=== PATIENT | male | born 1990 | race Hispanic/Latino ===

== ENCOUNTER 2017-03-12 01:17 | Emergency (ER) | payer BC ==
[2017-03-12 01:34] VITALS: RESP 16
--- NOTE | 2017-03-12 02:33 | ED PDOC ---
HPI: Seizure Time Seen by Provider: 03/12/17 01:20 Chief Complaint (Nursing): Seizure Chief Complaint (Provider): seizure History Per: Patient History/Exam Limitations: no limitations Recent Seizure Activity Began: Just Before Arrival Number Of Seizures: One Length Of Seizures (Duration): Minutes (2) Quality Of Seizure: Generalized Additional Complaint(s): 26yo male with PMHx including seizure a few years ago but never sought medical attention, shoulder dislocation, and Type 1 diabetes presents to the ED s/p seizure this evening. Patient reportedly had generalized tonic clonic seizure witnessed by female shaker operator. Patient was stiff for 2 minutes and hit the back of his head. Patient complaining of right shoulder pain. No other medical complaints. Past Medical History Reviewed: Historical Data, Nursing Documentation, Vital Signs Vital Signs: Last Vital Signs Temp 97.8 F 03/12/17 06:16 Pulse 86 03/12/17 06:16 Resp 16 03/12/17 06:16 BP 102/66 03/12/17 06:16 Pulse Ox 96 03/12/17 07:01 - Medical History PMH: Diabetes (type 1 ), Seizures (x1 ) Other PMH: shoulder dislocation - Surgical History Surgical History: No Surg Hx - Family History Family History: States: No Known Family Hx - Social History Current smoker - smoking cessation education provided: No Alcohol: None Drugs: Denies - Allergies Allergies/Adverse Reactions: Allergies Allergy/AdvReac Type Severity Reaction Status Date / Time No Known Allergies Allergy Verified 03/12/17 01:34 Review of Systems ROS Statement: Except As Marked, All Systems Reviewed And Found Negative Musculoskeletal: Positive for: Shoulder Pain (right ) Neurological: Positive for: Seizures (x1 ) Physical Exam - Reviewed Nursing Documentation Reviewed: Yes Vital Signs Reviewed: Yes - Physical Exam Appears: Positive for: Well, No Acute Distress Head Exam: Positive for: ATRAUMATIC, NORMAL INSPECTION, NORMOCEPHALIC Skin: Positive for: Normal Color, Warm, Dry Eye Exam: Positive for: Normal appearance, EOMI, PERRL ENT: Positive for: Normal ENT Inspection Neck: Positive for: Normal, Painless ROM, Supple Cardiovascular/Chest: Positive for: Regular Rate, Rhythm. Negative for: Murmur , Tachycardia Respiratory: Positive for: Normal Breath Sounds. Negative for: Wheezing, Respiratory Distress Gastrointestinal/Abdominal: Positive for: Normal Exam, Soft. Negative for: Tenderness Back: Positive for: Normal Inspection Extremity: Positive for: Other (decreased ROM of right shoulder secondary to pain, neurovascularly intact ). Negative for: Deformity, Swelling Neurologic/Psych: Positive for: Alert, interactive multimedia designer II-XII (intact ), Oriented. Negative for: Motor/Sensory Deficits, Aphasia, Facial Droop - Laboratory Results Result Diagrams: 03/12/17 02:30 03/12/17 02:30 - ECG O2 Sat by Pulse Oximetry: 96 Pulse Ox Interpretation: Normal (RA) Medical Decision Making Medical Decision Makin: Impression: seizure, right shoulder pain Plan: CT head CXR, XR right shoulder Tylenol 650mg PO CMP, CBC UA, urine culture reassess 0315: CT head impression: No evidence for intracranial hemorrhage or mass. Follow up as clinically indicated. 0415: XR right shoulder impression: Unremarkable shoulder radiographs. Mild arthritic change. If further evaluation of soft tissues is clinically indicated consider MRI. 0416: CXR impression: No evidence of active chest disease. Followup as clinically indicated. 0416: Labs reviewed, potassium low. K-dur ordered. 0525: Neurology on-call paged to ask if patient should be given prescription for seizure medication at this time. 0600: Neurology on-call paged again. 0630: Neurology on-call paged again. 0645: No call back from neurologist. Patient will be discharged home. pt wants to go home. is back to baseline. reviewed instructions with patient and need for oupt neurology follow up.Instructed to f/u w/ neurologist and PCP in 1-2 days. Advised to return to the ED with any worsening or concerning symptoms. Patient told not to drive until he is cleared by neurologist. Scribe Attestation: Documented by Dinorah Bliss acting as a scribe for Jose Gtz MD. Provider Scribe Attestation: All medical record entries made by the Scribe were at my direction and personally dictated by me. I have reviewed the chart and agree that the record accurately reflects my personal performance of the history, physical exam, medical decision making, and the department course for this patient. I have also personally directed, reviewed, and agree with the discharge instructions and disposition. Disposition - Clinical Impression Clinical Impression: Seizure disorder - Patient ED Disposition Is Patient to be Admitted: No Counseled Patient/Family Regarding: Studies Performed, Diagnosis, Need For Followup - Disposition Referrals: [facility] [Outside] Santo Arguello MD [Staff Provider] - Disposition: Routine/Home Disposition Time: 04:35 Condition: IMPROVED Additional Instructions: follow up with your primary doctor in 1-2 days return to the ED with any worsening or concerning symptoms. follow up with neurologist for further workup in 1-2 days Instructions: Epilepsy (ED), Cannabis Abuse (ED)
[2017-03-12 02:38] LABS: BASO # 0.1 K/uL (0.0-0.2); BASO % 0.4 % (0.0-2.0); EOS # 0.1 K/uL (0.0-0.7); EOS % 0.7 % (0.0-4.0); HEMATOCRIT 42.1 % (35.0-51.0); LYMPH # 2.5 K/uL (1.0-4.3); LYMPH % 19.3 % (20.0-40.0); MEAN CELL VOLUME 88.2 fl (80.0-94.0); MEAN CORPUSCULAR HEMOGLOBIN 29.3 pg (27.0-31.0); MEAN CORPUSCULAR HGB CONC 33.3 g/dL (33.0-37.0); MEAN PLATELET VOLUME 6.8 fl (7.2-11.7); MONO # 0.8 K/uL (0.0-0.8); MONO % 6.1 % (0.0-10.0); NEUT # 9.5 K/uL (1.8-7.0); NEUT % 73.5 % (50.0-75.0); NRBC % 0.1 % (0.0-0.0); RED CELL DISTRIBUTION WIDTH 12.6 % (11.5-14.5); WHITE BLOOD COUNT 12.9 K/uL (4.8-10.8)
[2017-03-12 02:49] LABS: ALB/GLOB RATIO 1.2 (1.0-2.1); ALKALINE PHOSPHATASE 77 U/L (38-126); ALT/SGPT 43 U/L (21-72); AST/SGOT 30 U/L (17-59); BILIRUBIN,TOTAL 0.3 mg/dl (0.2-1.3); BLOOD UREA NITROGEN 14 mg/dl (9-20); CALCIUM 9.2 mg/dL (8.4-10.2); CARBON DIOXIDE 23 mmol/L (22-30); CHLORIDE 105 mmol/L (98-107); GFR AFRICAN-AMERICAN > 60; GLUCOSE,RANDOM 73 mg/dL (75-110); SODIUM 140 mmol/l (132-148); TOTAL PROTEIN 8.2 G/DL (6.3-8.2)
[2017-03-12] MEDS ORDERED: Potassium Chloride 20 mEq ER Tab PO ONE ×2 (04:10→04:16)
[2017-03-12 05:05] LABS: RBC URINE 1 /hpf (0-3); URINE BILIRUBIN NEGATIVE (NEGATIVE); URINE BLOOD NEGATIVE (NEGATIVE); URINE COLOR YELLOW (YELLOW); URINE GLUCOSE (UA) NEG (Normal); URINE KETONE NEGATIVE (NEGATIVE); URINE LEUKOCYTE ESTERASE NEG Leu/uL (Negative); URINE PROTEIN 100 mg/dL (NEGATIVE); URINE UROBILINOGEN 0.2-1.0 mg/dL (0.2-1.0); WBC URINE 1 /hpf (0-5)
[2017-03-12 06:17] VITALS: BP 102/66; PULSE 86; TEMP 97.8
[2017-03-12 06:46] VITALS: O2SAT 96
--- NOTE | 2017-03-12 08:29 | CT ---
PROCEDURE: CT HEAD WITHOUT CONTRAST. HISTORY: seizure COMPARISON: None available. TECHNIQUE: Axial computed tomography images were obtained through the head/brain without intravenous contrast. Radiation dose: Total exam DLP = 859.23 mGy-cm. This CT exam was performed using one or more of the following dose reduction techniques: Automated exposure control, adjustment of the mA and/or kV according to patient size, and/or use of iterative reconstruction technique. FINDINGS: HEMORRHAGE: No intracranial hemorrhage. BRAIN: No mass effect or edema. No atrophy or chronic microvascular ischemic changes. VENTRICLES: Unremarkable. No hydrocephalus. CALVARIUM: Unremarkable. PARANASAL SINUSES: Unremarkable as visualized. No significant inflammatory changes. MASTOID AIR CELLS: Unremarkable as visualized. No inflammatory changes. OTHER FINDINGS: None. IMPRESSION: NO INTRACRANIAL MASS, HEMORRHAGE OR EVIDENCE OF ACUTE INFARCT. UNREMARKABLE EXAMINATION. Preliminary interpretation of this examination was reported by [facility] at 3:15 a.m. on 03/12/2017. There is concurrence of this report with the preliminary interpretation.
--- NOTE | 2017-03-12 10:50 | RAD ---
PROCEDURE: Radiographs of the Right Shoulder HISTORY: r shoulder pain COMPARISON: None available FINDINGS: BONES: No acute displaced fracture. The distal clavicle and underlying ribs appear intact. JOINTS: No acute dislocation. Mild degenerative changes with inferior spurring noted at the glenoid. Mild glenohumeral joint space narrowing. SOFT TISSUES: Soft tissues appear unremarkable. No evidence of radiopaque foreign body. IMPRESSION: Mild degenerative changes. No acute displaced fracture or dislocation evident. If symptoms persist or if there is continued clinical concern, x-ray follow-up in 7-10 days should be considered. Preliminary impression was provided by [facility].
--- NOTE | 2017-03-12 10:50 | RAD ---
HISTORY: seizure COMPARISON: None available. TECHNIQUE: Chest, one view. FINDINGS: LUNGS: No focal consolidation. Please note that chest x-ray has limited sensitivity for the detection of pulmonary masses. PLEURA: No significant pleural effusion identified. No definite pneumothorax . CARDIOVASCULAR: The cardiomediastinal silhouette appears within normal limits of size. OSSEOUS STRUCTURES: No acute osseous abnormality identified. VISUALIZED UPPER ABDOMEN: Unremarkable. OTHER FINDINGS: None. IMPRESSION: No focal consolidation, significant pleural effusion, or definite pneumothorax identified.
--- NOTE | 2017-03-14 06:55 | CARD ---
APPROVED REPORT EKG Measurement Heart [id number] <Conclusion> Normal sinus rhythm Normal ECG
== END 2017-03-12 06:52 | disposition home or self-care (01) ==
LOC: H.ER 01:17
DX: G40.409 Other generalized epilepsy and epileptic syndromes, not intractable, without status epilepticus (principal); Z79.4 Long term (current) use of insulin; E11.9 Type 2 diabetes mellitus without complications
CPT/HCPCS: 70450; 71010; 73030; 80053; 81003; 82948; 85025; 87086; 93005; 99285; G0480